=== PATIENT | male | born 1960 | race Caucasian/White ===

== ENCOUNTER 2021-01-07 10:55 | Inpatient (IN) ==
[2021-01-07] MEDS: *HR* Heparin 5,000 UNIT/ML VIAL SQ SCH (18:14)
[2021-01-07] MEDS: *HR* HYDROcodone/Acet 5/325 mg TABLET PO PRN (18:21)
[2021-01-07] MEDS: Gabapentin 300 MG CAPSULE PO SCH (21:22)
[2021-01-08] MEDS: *HR* HYDROcodone/Acet 5/325 mg TABLET PO PRN ×3 (03:10→17:25)
[2021-01-08] MEDS: *HR* Heparin 5,000 UNIT/ML VIAL SQ SCH ×2 (05:08→17:28)
[2021-01-08 05:18] LABS: Basophils % 0.4 %; Eosinophils # 0.1 K/mcL (0.0-0.6); Eosinophils % 1.3 %; Hematocrit 37.3 % (37.5-50.1); Hemoglobin 12.1 g/dL (12.9-16.9); Immature Granulocytes % 0.8 % (0-4); Lymphocytes # 1.9 K/mcL (0.6-4.6); Lymphocytes % 26.7 %; Mean Corpuscular HGB Conc 32.4 g/dL (31.6-35.5); Mean Corpuscular Hemoglobin 30.4 pg (28.0-33.3); Mean Corpuscular Volume 93.7 fL (83.0-100.0); Mean Platelet Volume 9.4 fL (9.4-12.4); Monocytes # 0.8 K/mcL (0.0-1.3); Monocytes % 10.7 %; Neutrophils # 4.3 K/mcL (1.6-8.9); Platelet Count 246 K/mcL (140-400); Red Blood Count 3.98 M/mcL (4.19-5.50); Red Cell Distribution Width 14.2 % (11.5-14.5); Segmented Neutrophils % 60.1 %; White Blood Count 7.2 K/mcL (4.3-11.1)
[2021-01-08 05:34] LABS: BUN/Creatinine Ratio 22 (6-26); Blood Urea Nitrogen 17 mg/dL (8-23); Calcium 8.9 mg/dL (8.6-10.3); Carbon Dioxide 29 mEq/L (23-29); Chloride 100 mEq/L (98-107); Glucose 130 mg/dL (70-105); Osmolality,Calculated 287 (280-300); Potassium 3.9 mEq/L (3.5-5.1); Sodium 137 mEq/L (136-145); eGFR For African Americans > 60 (> 60); eGFR For Non-African Americans > 60 (> 60)
[2021-01-08] MEDS: Aspirin Enteric Coated 81 MG Tablet PO SCH (08:10)
[2021-01-08] MEDS: Nicotine 14 MG PATCH.TD24 TD SCH (17:25)
[2021-01-08] MEDS: polyethylene glycoL 3350 17 GM POWD.PACK PO SCH (17:26)
[2021-01-08] MEDS: Ipratropium/Albuterol Neb 3 ML IH SCH (19:09)
[2021-01-08] MEDS: Gabapentin 300 MG CAPSULE PO SCH (20:36)
[2021-01-08] MEDS: Sennosides/Docusate Sodium TABLET PO SCH (20:36)
[2021-01-09] MEDS: *HR* HYDROcodone/Acet 5/325 mg TABLET PO PRN ×4 (00:04→21:35)
[2021-01-09] MEDS: Ipratropium/Albuterol Neb 3 ML IH SCH ×6 (03:43→20:22)
[2021-01-09] MEDS: *HR* Heparin 5,000 UNIT/ML VIAL SQ SCH ×2 (05:43→17:11)
[2021-01-09] MEDS: polyethylene glycoL 3350 17 GM POWD.PACK PO SCH (08:50)
[2021-01-09] MEDS: Nicotine 14 MG PATCH.TD24 TD SCH (08:50)
[2021-01-09] MEDS: Aspirin Enteric Coated 81 MG Tablet PO SCH (08:51)
[2021-01-09] MEDS: Sennosides/Docusate Sodium TABLET PO SCH ×2 (08:51→20:11)
[2021-01-09] MEDS: Gabapentin 300 MG CAPSULE PO SCH ×2 (12:27→20:11)
[2021-01-09] MEDS: Nystatin POWDER 30 GM BOTTLE TP SCH (20:11)
[2021-01-10] MEDS: Ipratropium/Albuterol Neb 3 ML IH SCH ×3 (00:03→07:37)
[2021-01-10] MEDS: *HR* Heparin 5,000 UNIT/ML VIAL SQ SCH ×2 (05:18→16:54)
[2021-01-10] MEDS: *HR* HYDROcodone/Acet 5/325 mg TABLET PO PRN ×3 (05:19→22:57)
[2021-01-10] MEDS: polyethylene glycoL 3350 17 GM POWD.PACK PO SCH (09:20)
[2021-01-10] MEDS: Nicotine 14 MG PATCH.TD24 TD SCH (09:20)
[2021-01-10] MEDS: Sennosides/Docusate Sodium TABLET PO SCH ×2 (09:21→20:57)
[2021-01-10] MEDS: Gabapentin 300 MG CAPSULE PO SCH ×2 (09:21→20:57)
[2021-01-10] MEDS: Aspirin Enteric Coated 81 MG Tablet PO SCH (09:21)
[2021-01-10] MEDS: Nystatin POWDER 30 GM BOTTLE TP SCH ×2 (09:21→20:57)
[2021-01-10] MEDS ORDERED: Ipratropium/Albuterol Neb 3 ML IH PRN (11:23)
[2021-01-11] MEDS: *HR* Heparin 5,000 UNIT/ML VIAL SQ SCH ×2 (04:56→17:39)
[2021-01-11] MEDS: *HR* HYDROcodone/Acet 5/325 mg TABLET PO PRN ×4 (04:57→23:34)
[2021-01-11] MEDS: Sennosides/Docusate Sodium TABLET PO SCH (08:19)
[2021-01-11] MEDS: Gabapentin 300 MG CAPSULE PO SCH ×2 (08:19→20:34)
[2021-01-11] MEDS: Nystatin POWDER 30 GM BOTTLE TP SCH ×2 (08:19→20:34)
[2021-01-11] MEDS: Aspirin Enteric Coated 81 MG Tablet PO SCH (08:19)
[2021-01-11] MEDS: polyethylene glycoL 3350 17 GM POWD.PACK PO SCH (08:19)
[2021-01-11] MEDS: Nicotine 14 MG PATCH.TD24 TD SCH (08:19)
[2021-01-11] MEDS ORDERED: Sennosides/Docusate Sodium TABLET PO PRN (11:07)
[2021-01-11] MEDS ORDERED: polyethylene glycoL 3350 17 GM POWD.PACK PO PRN (11:07)
[2021-01-12] MEDS: *HR* Heparin 5,000 UNIT/ML VIAL SQ SCH ×2 (06:03→17:01)
[2021-01-12] MEDS: *HR* HYDROcodone/Acet 5/325 mg TABLET PO PRN ×2 (06:03→17:54)
[2021-01-12] MEDS: Gabapentin 300 MG CAPSULE PO SCH ×2 (08:36→20:20)
[2021-01-12] MEDS: Aspirin Enteric Coated 81 MG Tablet PO SCH (08:36)
[2021-01-12] MEDS: Nicotine 14 MG PATCH.TD24 TD SCH (08:37)
[2021-01-12] MEDS: Nystatin POWDER 30 GM BOTTLE TP SCH ×2 (08:39→20:21)
[2021-01-12 13:12] LABS: Basophils % 0.4 %; Eosinophils # 0.2 K/mcL (0.0-0.6); Eosinophils % 3.5 %; Hematocrit 38.2 % (37.5-50.1); Hemoglobin 12.4 g/dL (12.9-16.9); Immature Granulocytes % 0.9 % (0-4); Lymphocytes # 1.5 K/mcL (0.6-4.6); Mean Corpuscular HGB Conc 32.5 g/dL (31.6-35.5); Mean Corpuscular Hemoglobin 30.4 pg (28.0-33.3); Mean Corpuscular Volume 93.6 fL (83.0-100.0); Mean Platelet Volume 9.4 fL (9.4-12.4); Monocytes # 0.7 K/mcL (0.0-1.3); Monocytes % 13.1 %; Neutrophils # 3.1 K/mcL (1.6-8.9); Platelet Count 232 K/mcL (140-400); Red Blood Count 4.08 M/mcL (4.19-5.50); Red Cell Distribution Width 14.3 % (11.5-14.5); Segmented Neutrophils % 55.1 %; White Blood Count 5.6 K/mcL (4.3-11.1)
[2021-01-12 13:24] LABS: BUN/Creatinine Ratio 15 (6-26); Blood Urea Nitrogen 12 mg/dL (8-23); Calcium 8.8 mg/dL (8.6-10.3); Carbon Dioxide 29 mEq/L (23-29); Chloride 100 mEq/L (98-107); Glucose 117 mg/dL (70-105); Osmolality,Calculated 283 (280-300); Potassium 3.9 mEq/L (3.5-5.1); Sodium 136 mEq/L (136-145); eGFR For African Americans > 60 (> 60); eGFR For Non-African Americans > 60 (> 60)
[2021-01-13] MEDS: *HR* Heparin 5,000 UNIT/ML VIAL SQ SCH ×2 (06:44→17:22)
[2021-01-13] MEDS: *HR* HYDROcodone/Acet 5/325 mg TABLET PO PRN ×3 (06:44→20:35)
[2021-01-13] MEDS: Nicotine 14 MG PATCH.TD24 TD SCH (08:45)
[2021-01-13] MEDS: Nystatin POWDER 30 GM BOTTLE TP SCH ×2 (08:47→20:57)
[2021-01-13] MEDS: Gabapentin 300 MG CAPSULE PO SCH ×2 (08:47→20:35)
[2021-01-13] MEDS: Aspirin Enteric Coated 81 MG Tablet PO SCH (08:47)
[2021-01-14] MEDS: *HR* HYDROcodone/Acet 5/325 mg TABLET PO PRN ×4 (03:26→21:22)
[2021-01-14] MEDS: *HR* Heparin 5,000 UNIT/ML VIAL SQ SCH ×2 (05:27→15:59)
[2021-01-14] MEDS: Gabapentin 300 MG CAPSULE PO SCH ×2 (08:10→21:22)
[2021-01-14] MEDS: Nicotine 14 MG PATCH.TD24 TD SCH (08:10)
[2021-01-14] MEDS: Nystatin POWDER 30 GM BOTTLE TP SCH ×2 (08:10→21:25)
[2021-01-14] MEDS: Aspirin Enteric Coated 81 MG Tablet PO SCH (08:12)
[2021-01-15] MEDS: *HR* Heparin 5,000 UNIT/ML VIAL SQ SCH ×2 (06:21→18:03)
[2021-01-15] MEDS: *HR* HYDROcodone/Acet 5/325 mg TABLET PO PRN ×4 (06:22→20:05)
[2021-01-15] MEDS: Aspirin Enteric Coated 81 MG Tablet PO SCH (08:55)
[2021-01-15] MEDS: Gabapentin 300 MG CAPSULE PO SCH ×2 (08:55→20:05)
[2021-01-15] MEDS: Nicotine 14 MG PATCH.TD24 TD SCH (08:55)
[2021-01-15] MEDS: Nystatin POWDER 30 GM BOTTLE TP SCH ×2 (08:56→20:11)
[2021-01-16] MEDS: *HR* Heparin 5,000 UNIT/ML VIAL SQ SCH ×2 (04:24→17:40)
[2021-01-16] MEDS: *HR* HYDROcodone/Acet 5/325 mg TABLET PO PRN ×4 (04:25→19:53)
[2021-01-16] MEDS: Aspirin Enteric Coated 81 MG Tablet PO SCH (09:12)
[2021-01-16] MEDS: Nicotine 14 MG PATCH.TD24 TD SCH (09:12)
[2021-01-16] MEDS: Gabapentin 300 MG CAPSULE PO SCH ×2 (09:12→19:53)
[2021-01-16] MEDS: Nystatin POWDER 30 GM BOTTLE TP SCH ×2 (09:13→19:54)
[2021-01-17] MEDS: *HR* HYDROcodone/Acet 5/325 mg TABLET PO PRN ×5 (00:46→19:33)
[2021-01-17] MEDS: *HR* Heparin 5,000 UNIT/ML VIAL SQ SCH ×2 (06:17→15:19)
[2021-01-17] MEDS: Nicotine 14 MG PATCH.TD24 TD SCH (09:04)
[2021-01-17] MEDS: Aspirin Enteric Coated 81 MG Tablet PO SCH (09:04)
[2021-01-17] MEDS: Gabapentin 300 MG CAPSULE PO SCH ×2 (09:04→19:33)
[2021-01-17] MEDS: Nystatin POWDER 30 GM BOTTLE TP SCH ×2 (09:07→19:33)
[2021-01-18] MEDS: *HR* Heparin 5,000 UNIT/ML VIAL SQ SCH ×2 (03:53→15:26)
[2021-01-18] MEDS: *HR* HYDROcodone/Acet 5/325 mg TABLET PO PRN ×4 (03:53→18:18)
[2021-01-18] MEDS: Gabapentin 300 MG CAPSULE PO SCH ×3 (08:55→20:02)
[2021-01-18] MEDS: Aspirin Enteric Coated 81 MG Tablet PO SCH (08:55)
[2021-01-18] MEDS: Nicotine 14 MG PATCH.TD24 TD SCH (08:56)
[2021-01-18] MEDS: Nystatin POWDER 30 GM BOTTLE TP SCH (09:12)
[2021-01-19] MEDS: *HR* HYDROcodone/Acet 5/325 mg TABLET PO PRN ×4 (00:11→23:32)
[2021-01-19] MEDS: Nystatin POWDER 30 GM BOTTLE TP SCH ×3 (00:12→20:52)
[2021-01-19 05:08] LABS: Basophils % 0.4 %; Eosinophils # 0.3 K/mcL (0.0-0.6); Eosinophils % 5.8 %; Hemoglobin 11.7 g/dL (12.9-16.9); Immature Granulocytes % 0.9 % (0-4); Lymphocytes # 2.7 K/mcL (0.6-4.6); Lymphocytes % 47.1 %; Mean Corpuscular HGB Conc 32.5 g/dL (31.6-35.5); Mean Corpuscular Hemoglobin 30.5 pg (28.0-33.3); Mean Platelet Volume 8.9 fL (9.4-12.4); Monocytes # 0.8 K/mcL (0.0-1.3); Monocytes % 13.5 %; Neutrophils # 1.8 K/mcL (1.6-8.9); Platelet Count 234 K/mcL (140-400); Red Blood Count 3.83 M/mcL (4.19-5.50); Red Cell Distribution Width 14.4 % (11.5-14.5); Segmented Neutrophils % 32.3 %; White Blood Count 5.7 K/mcL (4.3-11.1)
[2021-01-19 05:23] LABS: BUN/Creatinine Ratio 14 (6-26); Blood Urea Nitrogen 12 mg/dL (8-23); Calcium 8.6 mg/dL (8.6-10.3); Carbon Dioxide 27 mEq/L (23-29); Chloride 102 mEq/L (98-107); Glucose 132 mg/dL (70-105); Osmolality,Calculated 286 (280-300); Potassium 4.1 mEq/L (3.5-5.1); Sodium 137 mEq/L (136-145); eGFR For African Americans > 60 (> 60); eGFR For Non-African Americans > 60 (> 60)
[2021-01-19] MEDS: *HR* Heparin 5,000 UNIT/ML VIAL SQ SCH ×2 (06:22→17:15)
[2021-01-19] MEDS: Nicotine 14 MG PATCH.TD24 TD SCH (08:01)
[2021-01-19] MEDS: Gabapentin 300 MG CAPSULE PO SCH ×3 (08:02→20:48)
[2021-01-19] MEDS: Aspirin Enteric Coated 81 MG Tablet PO SCH (08:02)
[2021-01-20] MEDS: *HR* HYDROcodone/Acet 5/325 mg TABLET PO PRN ×2 (04:23→12:55)
[2021-01-20] MEDS: *HR* Heparin 5,000 UNIT/ML VIAL SQ SCH (04:23)
[2021-01-20 07:25] VITALS: BP 147/80
[2021-01-20] MEDS: Nicotine 14 MG PATCH.TD24 TD SCH (08:28)
[2021-01-20] MEDS: Aspirin Enteric Coated 81 MG Tablet PO SCH (08:29)
[2021-01-20] MEDS: Gabapentin 300 MG CAPSULE PO SCH (08:29)
[2021-01-20] MEDS: Nystatin POWDER 30 GM BOTTLE TP SCH (08:29)
== END 2021-01-20 13:55 | disposition home or self-care (01) | DRG 561 ==
LOC: INPGRE 17:26
PROVIDERS: ADMIT Family Medicine; ATTEND Family Medicine